=== PATIENT | female | born 1950 | race Caucasian/White ===

== ENCOUNTER → 2022-09-03 09:06 | Outpatient (REF) | payer OTHER, SELFPAY ==
--- NOTE | 2022-09-03 09:12 | CA_ITS ---
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 Normal LV systolic function with impaired relaxation filling pattern 2. Mild aortic stenosis 3. Normal RV systolic pressure 4. No gross pericardial effusion Findings Left Ventricle Normal left ventricular size, thickness, and systolic function. The visually estimated ejection fraction is between 55-60%. Spectral Doppler is indicative of an impaired relaxation filling pattern. E/E prime ratio is between 8 and 15 consistent with indeterminate filling pressures. Peak GLS is -14.3%, which is reduced. Right Ventricle Normal right ventricular cavity size and systolic function. Atria Both atria are normal in size. There is no evidence of interatrial shunt. Aortic Valve There is mild calcification of the aortic valve. There is mild thickening of the aortic valve. There is mild aortic valve stenosis. The peak aortic velocity is 1.79 m/s with a calculated peak gradient of 13 mmHg. The mean gradient is 8 mmHg. The aortic valve area is 1.61 cm2. There is no aortic valve regurgitation. Mitral Valve There is mild anterior and posterior mitral leaflet thickening. There is mild mitral annular calcification. There is trace mitral valve regurgitation. There is no mitral valve stenosis. Pulmonic Valve The pulmonic valve was not well visualized. Tricuspid Valve Likely normal tricuspid valve structure and function. Tricuspid regurgitation envelope is inadequate for calculation of right ventricular systolic pressure. Normal right atrial pressure. Great Vessels All visible segments of the aorta are normal in size. The pulmonary artery was not well visualized. Venous The inferior vena cava is normal in size and collapses greater than 50% with inspiration. Pericardium/Pleural There is no evidence of pericardial effusion. Prior Study Comparison No prior study available for comparison. Measurements 2D Linear Measurements IVSd: 0.91 0.6-0.9/0.6-1.0 cm LVIDd: 4.65 3.9-5.3/4.2-5.9 cm LVIDd Index: 2.92 2.4-3.2/2.2-3.1 cm/m2 LVIDs: 3.28 2.0-3.6 cm LVPWd: 0.80 0.7-1.1 cm LA Diam: 3.40 2.7-3.8/3.0-4.0 cm LAIDs Index: 2.14 1.5-2.3 cm/m2 LV Mass: 163.11 67-162/88-224 g LV Mass Index: 102.58 43-95/49-115 g/m2 LVOT Diam: 2.00 3.0+(-)1.3 cm 2D Systolic Function EF 4C: 52.90 >55% EF 2C: 58.90 >55% EF BiP: 57.00 >55% Mitral Valve MV Pk E: 0.72 MV PK A: 1.02 MV Decel Time: 244.00 E/A: 0.70 E'Lateral: 3.48 E'Medial: 3.26 E/E' Med: 22.10 E/E' Lat: 20.70 PHT: 72.00 MVA PHT: 3.06 Decel [place]: 2.95 Aortic Valve AoV Pk Teo: 1.79 AoV Mn Teo: 1.32 AoV VTI: 0.39 AoV Pk Grad: 13.00 Aov Mn Grad: 8.00 GIOVANI Cont.VTI: 1.61 LVOT LVOT Pk Teo: 0.81 LVOT Mn Teo: 0.55 LVOT VTI: 0.20 LVOT Pk Grad: 3.00 LVOT Mn Grad: 1.00 LVOT Diam: 2.00 LVOT Area: 3.14 Diastolic Function MV Pk E: 0.72 MV Pk A: 1.02 E/A: 0.70 E'Medial: 3.26 E/E' Med: 22.10 E' Laterial: 3.48 E/E' Lat: 20.70 Right Ventricle TAPSE (mm): 22.40 TVS' Teo: 13.10 Tricuspid Valve RA Press: 3.00 Great Vessels Aorta Sinus of Valsalva: 2.60 2.0-3.5 cm Ao Asc: 2.80 2.1-3.4 cm Pulmonary Valve PV Pk Teo: 0.95 Peak PV Grad: 4.00 Updated in Other Vendor System with Status of Final Yonis Estrella MD electronically signed on 09/03/2022 3:47:07 PM with status of Final
== END ==
LOC: HO.CARD 09:06
PROVIDERS: PCP Family Medicine; Visit Provider Family Medicine
DX: R01.1 Cardiac murmur, unspecified (principal)
CPT/HCPCS: 93306; 93356